=== PATIENT | male | born 1950 | race Caucasian/White ===

== ENCOUNTER 2022-05-19 00:40 | Day surgery (SDC) | payer MEDICARE, SELFPAY ==
[2022-05-04 14:45] VITALS: BMI 29.0
[2022-05-19 06:29] VITALS: BP 130/87; PULSE 92; RESP 20; TEMP 36.2; O2SAT 97; BMI 29.5
[2022-05-19] MEDS: LACTATED RINGERS 1,000 ML 150 ML IV CONT (06:35)
--- NOTE | 2022-05-19 07:04 | WPDANESEPPF ---
Anes - Initial Pre Proc Eval Procedure: Operation Date: 05/19/22 07:30 Proposed Procedures p Screening Colonoscopy - Zana Mason MD Date/Time: 05/19/22 07:04 Surgeon: Zana Mason MD Pre Op Diagnosis: neoplasm screening Patient Data Age: 72 Gender: M Height: 1.8 m Weight: 96.1 kg Last Vital Signs Temp 36.2 C L 05/19/22 06:29 Pulse 92 05/19/22 06:29 Resp 20 05/19/22 06:29 BP 130/87 05/19/22 06:29 Pulse Ox 97 05/19/22 06:29 O2 Del Method Room Air 05/19/22 06:29 Allergies Allergy/AdvReac Type Severity Reaction Status Date / Time No Known Allergies Allergy Verified 05/19/22 06:27 Home Medications Medication Instructions Recorded Confirmed Type alpha lipoic acid 100 mg capsule 100 mg PO DAILY 01/11/22 04/02/22 History cholecalciferol (vitamin D3) 125 125 mcg PO DAILY 01/11/22 04/02/22 History mcg (5,000 unit) capsule coenzyme [id number] E 100 mg-100 cap PO 01/11/22 04/02/22 History unit capsule garlic 500 mg capsule 500 mg PO DAILY 01/11/22 04/02/22 History iron 18 mg tablet 18 mg PO DAILY 01/11/22 04/02/22 History magnesium 200 mg tablet 400 mg PO DAILY 01/11/22 04/02/22 History mecobalamin (vitamin B12) 1,000 1,000 mcg sublingual DAILY 01/11/22 04/02/22 History mcg disintegrating tablet,sublingual omega-3 fatty acids 500 mg capsule 500 mg PO DAILY 01/11/22 04/02/22 History pygeum africanum 50 mg capsule mg PO 01/11/22 04/02/22 History tumeric 100 mg-alexei 150 mg-olive cap PO 01/11/22 04/02/22 History 50 mg-oreg 150 mg-caprylate capsule vit Q-I-R-selenium-glutamine with packet PO 01/11/22 04/02/22 History acetylcysteine oral packet Patient hx anesthesia problems: none Family hx anesthesia problems: none Results Review: All pre-operative results and documents have been reviewed as part of the pre-operative evaluation. [facility] Past Medical History Medical History (Updated 04/01/22 @ 09:55 by Jose De Jesus Stallings MD) Bilateral leg numbness BMI 29.0-29.9,adult BMI greater than 30 BPH associated with nocturia Left arm numbness Low testosterone level in male Primary osteoarthritis of right hip Family History Family History Grandparent Diabetes mellitus Social History Social History Smoking status: Never smoker Alcohol intake: current Drinks per week: 3 Substance use: unknown Substance use type: does not use Lack of Transportation: No Lack of Food: Never True Current Housing: I Have Housing Concerned About Future Housing: No Difficulty Paying Gas/Electric Bills: No Difficulty Paying for Meds: No Currently Unemployed: No Education: Associate Degree Difficulty w/ Childcare or Family Care: No Living arrangements: with family Anes - Eval Final PreProcedure Day of Procedure 05/19/22 07:04 Patient weight: overweight Heart: regular rate and rhythm Lungs: clear to auscultation Airway: Mallampati scale class II Neurological: alert and oriented Last oral intake: >/= 8 hours ASA classification: II Emergent: no Anesthetic plan: proceed Anesthesia type and monitoring: general GIVS and standard monitoring Results Review: All pre-operative results and documents have been reviewed as part of the pre-operative evaluation. Informed Consent: The patient's anesthetic plan and its attendant risks and benefits were discussed with the patient/family/POA. Questions were solicited and answers provided to the satisfaction of the patient/family/POA.
--- NOTE | 2022-05-19 07:31 | PM.HPGS ---
History of Present Illness History of Present Illness Consent: Risks, benefits, and alternatives have been discussed and questions answered. Patient agrees to proceed with procedure. Chief complaint: neoplasm screening Narrative: Tyrell Thompson is a 72 year old male with colon polyps 2017 Review of Systems Constitutional: Constitutional: Denies headache(s) and Denies weakness Eyes: Eyes: Denies blurry vision ENT: Reports Normal hearing present, Denies headache(s) and Denies neck pain Cardiovascular: Cardiovascular: Denies chest pain and Denies dyspnea Respiratory: Respiratory: Denies dyspnea Gastrointestinal: Gastrointestinal: Reports no additional gastrointestinal complaints Genitourinary: Genitourinary: Denies dysuria Musculoskeletal: Musculoskeletal: Denies neck pain Integumentary/Breasts: Skin/Breast: Denies dry skin Neurologic: Reports Normal hearing present, Denies headache(s) and Denies weakness Psychiatric: Psychiatric: Denies anxiety Endocrine: Endocrine: Denies change in body appearance Hematologic/Lymphatic: Hematologic/Lymphatic: Denies easy bleeding Allergic/Immunologic: Allergic/Immunologic: Denies urticaria PMF Past Medical History Medical History (Updated 05/19/22 @ 07:32 by Zana Mason MD) Bilateral leg numbness BMI 29.0-29.9,adult BMI greater than 30 BPH associated with nocturia Colon polyp Left arm numbness Low testosterone level in male Primary osteoarthritis of right hip Family History Family History Grandparent Diabetes mellitus Social History Social History Smoking status: Never smoker Alcohol intake: current Drinks per week: 3 Substance use: unknown Substance use type: does not use Lack of Transportation: No Lack of Food: Never True Current Housing: I Have Housing Concerned About Future Housing: No Difficulty Paying Gas/Electric Bills: No Difficulty Paying for Meds: No Currently Unemployed: No Education: Associate Degree Difficulty w/ Childcare or Family Care: No Living arrangements: with family Meds Home Medications and Allergies Home Medications Medication Instructions Recorded Confirmed Type alpha lipoic acid 100 mg capsule 100 mg PO DAILY 01/11/22 04/02/22 History cholecalciferol (vitamin D3) 125 125 mcg PO DAILY 01/11/22 04/02/22 History mcg (5,000 unit) capsule coenzyme [id number] E 100 mg-100 cap PO 01/11/22 04/02/22 History unit capsule garlic 500 mg capsule 500 mg PO DAILY 01/11/22 04/02/22 History iron 18 mg tablet 18 mg PO DAILY 01/11/22 04/02/22 History magnesium 200 mg tablet 400 mg PO DAILY 01/11/22 04/02/22 History mecobalamin (vitamin B12) 1,000 1,000 mcg sublingual DAILY 01/11/22 04/02/22 History mcg disintegrating tablet,sublingual omega-3 fatty acids 500 mg capsule 500 mg PO DAILY 01/11/22 04/02/22 History pygeum africanum 50 mg capsule mg PO 01/11/22 04/02/22 History tumeric 100 mg-alexei 150 mg-olive cap PO 01/11/22 04/02/22 History 50 mg-oreg 150 mg-caprylate capsule vit Q-V-O-selenium-glutamine with packet PO 01/11/22 04/02/22 History acetylcysteine oral packet Allergies Allergy/AdvReac Type Severity Reaction Status Date / Time No Known Allergies Allergy Verified 05/19/22 06:27 Vital Signs Vital Signs - 24 hr 05/19/22 06:29 Temperature 97.2 F L Pulse Rate 92 Respiratory Rate 20 Blood Pressure 130/87 Pulse Oximetry 97 Oxygen Delivery Room Air Exam Const: General: comfortable and no acute distress HENMT: Face/Nose/Sinus: Normal nares present Eyes: General: appearance normal, both eyes and all related structures Neck: Neck: no JVD Resp: Auscultation: clear to auscultation bilaterally Cardio: Rate: regular rate Rhythm: regular rhythm GI: Inspection: non-distended GI Palp: Yes Soft to palpation Skin: General skin ex
[2022-05-19 07:53] VITALS: BP 111/70; PULSE 58; RESP 15; O2SAT 98
[2022-05-19 08:03] VITALS: BP 126/78; PULSE 62; RESP 20; O2SAT 98
[2022-05-19 08:13] VITALS: BP 128/72; PULSE 56; RESP 15; O2SAT 99
== END 2022-05-19 08:20 | disposition home or self-care (01) ==
PROVIDERS: PCP Family Medicine; Visit Provider Internal Medicine Gastroenterology
PROC: 0DJD8ZZ Inspection of Lower Intestinal Tract, Via Natural or Artificial Opening Endoscopic (ICD-10-PCS; CPT 45378; principal; 2022-05-19 07:30)
DX: Z12.11 Encounter for screening for malignant neoplasm of colon (principal); K63.5 Polyp of colon; K64.8 Other hemorrhoids
CPT/HCPCS: 45385; 88305; J2704; J7120

== ENCOUNTER 2022-12-21 08:23 | Outpatient (CLI) | payer MEDICARE, SELFPAY ==
--- NOTE | ~2022-12-21 | MR_ITS ---
MRI of the left shoulder Technique: Axial proton-density fat-sat images, coronal proton density fat-sat and T2 fat-sat images, and sagittal T1-weighted and T2 fat-sat images were acquired. Clinical History: Impingement Findings: There is moderate to advanced AC joint degenerative change. Coracoclavicular, coracoacromia l, and coracohumeral ligaments appear intact. There is moderate supraspinatus and infraspinatus tendinosis. There is probable focal moderate grade fraying of the very anterior, distal supraspinatus tendon insertion. No definite full-thickness tear is seen. Subscapularis tendon is intact with mild tendinosis. Tendon of long head of the biceps is in tact. No definite labral tear identified. Inferior glenohumeral ligament is intact. No degenerative change or effusion of the glenohumeral join t. There is minimal fluid in the subacromial/subdeltoid bursa. No muscle atrophy or edema. Impression: Rotator cuff tendinosis, as detailed above. Probable focal moderate grade bursal surface fraying of t he anterior, distal supraspinatus tendon insertion. No definite full-thickness tear seen. Moderate to advanced AC joint degenerative change. Minimal subacromial/subdeltoid bursitis. Reviewed, dictated and finalized at location [facility]. Impression: Rotator cuff tendinosis, as detailed above. Probable focal moderate grade bursa l surface fraying of the anterior, distal supraspinatus tendon insertion. No de finite full-thickness tear seen. Moderate to advanced AC joint degenerative change. Minimal subacromial/subdeltoid bursitis.
--- NOTE | ~2022-12-21 | MR_ITS ---
MRI of the cervical spine Clinical History: Radiculopathy Technique: Axial T2-weighted and gradient images, and sagittal T1-weighted, T2-weighted, and STIR israel ges were acquired. Findings: There is no fracture or subluxation of the cervical spine. Vertebral bodies maintain normal height and alignment. No suspicious bone marrow signal abnormality seen. At C2-C3, there is no disc bulge or herniation. No spinal canal stenosis, cord compression, or neural foraminal narrowing. At C3-C4, there is mild degenerative distended with minimal disc osteophyte complex and minimal bilat eral facet arthropathy. There is probable mild left neural foraminal narrowing. Right neural foramina are preserved. No central canal stenosis or cord compression. At C4-C5, there is mild degenerative disc narrowing with minimal disc osteophyte complex. Bilateral n eural foramina are preserved. No central canal stenosis or cord compression evident. At C5-C6, there is advanced generative disc narrowing with minimal disc osteophyte complex. There is mild bilateral facet joint hypertrophy. Bilateral neural foramina are probably preserved. No central canal stenosis or cord compression. At C6-C7, there is minimal disc ossify complex. There is probable bilateral mild neural foraminal annie rowing. No central canal stenosis or cord compression. No abnormal signal seen in the spinal cord. Paravertebral soft tissues are unremarkable. Impression: Mild degenerative spondylosis, as above. Reviewed, dictated and finalized at [facility]. Impression: Mild degenerative spondylosis, as above.
== END 2022-12-21 08:24 | disposition home or self-care (01) ==
LOC: ANHIMG 08:25
PROVIDERS: PCP Family Medicine; Visit Provider Physician Assistant Surgical
DX: M75.42 Impingement syndrome of left shoulder (principal); M47.22 Other spondylosis with radiculopathy, cervical region
CPT/HCPCS: 72141; 73221

== ENCOUNTER 2023-01-14 05:28 | Day surgery (SDC) | payer MEDICARE, SELFPAY ==
--- NOTE | 2023-01-07 15:37 | PC.NURSE ---
Report to the Outpatient Waiting Room, entrance under the green pavilion located off [facility], at time _1030 on date _01/14/23 . Planned Procedure Time: __1230 . Time changes happen often and if your time is changed the preop area will call you the afternoon before. - You and your visitor will be asked to self-screen and do not enter if you have any COVID symptoms. - A mask is optional within the hospital at this time. Patients may have clear liquids (water, carbonated beverages, clear teas, apple juice) until 3 hours prior to surgery with a maximum of 20 ounces. - No food from midnight until time of surgery - Infants may have breast milk until 4 hours before surgery, infant formula 6 hours prior to surgery. - Children will be allowed to drink immediately following surgery. If applicable, please bring a bottle or sippy cup to assist with drinking. Juice, water, soda, and popsicles are readily available. For infants on formula, please bring formula the day of surgery. Pacifiers are allowed. Take the following medications with a SIP of water the morning of surgery: __NONE DO NOT STOP ANY OF YOUR OTHER PRESCRIPTION MEDICATIONS PRIOR TO SURGERY ?EXCEPT THE FOLLOWING Medications to discontinue per physician _ALL VITAMINS AND SUPPLEMENTS 3 DAYS PRE OP.LAST DOSE 01/10/23 Please no make-up, nail maltese, hairspray, perfume, deodorant, or body powder the day of surgery. No jewelry (including any body piercings) or valuables the day of surgery, leave them at home. Please take a shower or bath the night before, or the morning of, surgery with an antibacterial soap. Wear comfortable, loose fitting clothing. Children are encouraged to wear pajamas. - Jewelry must be removed prior to entering the operating room. Rings and piercings that are not removed may be cut off. - The hospital will not accept responsibility for valuables. - Please leave all valuables, including medications, at home the day of surgery. If you are going home after surgery, a licensed dolly driver must drive you home. - NO public transportation without another adult if you receive anesthesia. - We recommend that an adult stay with you for 24 hours following discharge. - We also recommend that you do not drive, make important decision, drink alcoholic beverages, or take any drugs that were not prescribed by your health care provider for at least 24 hours after your discharge time. Follow any additional instructions given to you from your surgeon. If you or anyone in your household have experienced Covid symptoms in the past week, please notify your surgeon or the nurse liaison at the phone number below for possible testing. Telephone instructions given to ___PATIENT and asked if any additional questions and then verbalized understanding. Patient advised to call surgeon office or pre surgery nurse liaison [phone] if any additional questions.
[2023-01-07 15:43] VITALS: BMI 29.2
[2023-01-14] VITALS (10 sets, daily range): BP systolic 112–160; BP diastolic 52–90; PULSE 52–83; RESP 11–18; TEMP 36.2–36.4; O2SAT 93–100
[2023-01-14] MEDS: ACETAMINOPHEN 500 MG TABLET 1000 MG PO (10:48)
[2023-01-14] MEDS: LACTATED RINGERS 1,000 ML 30 ML IV CONT ×3 (10:57→14:58)
[2023-01-14] MEDS: KETOROLAC 15 MG/ML VIAL (*BKC) IV PUSH (10:58)
[2023-01-14 11:09] LABS: Hematocrit 47.7 % (42.0-52.0); Hemoglobin 15.4 g/dL (14.0-18.0)
--- NOTE | 2023-01-14 12:00 | WPDANESEPPF ---
Anes - Initial Pre Proc Eval Procedure: Operation Date: 01/14/23 12:30 Proposed Procedures p Left Shoulder Arthroscopic Subacromial Decompression, Proceed as indicated - Jose Smith MD Date/Time: 01/14/23 12:00 Surgeon: Jose Smith MD Pre Op Diagnosis: Impingement Synd Left Shoulder Patient Data Age: 72 Gender: M Height: 1.8 m Weight: 96 kg Last Vital Signs Temp 36.2 C L 01/14/23 10:19 Pulse 52 L 01/14/23 10:19 Resp 18 01/14/23 10:19 BP 160/90 H 01/14/23 10:19 Pulse Ox 100 01/14/23 10:19 O2 Del Method Room Air 01/14/23 10:19 Allergies Allergy/AdvReac Type Severity Reaction Status Date / Time No Known Allergies Allergy Verified 01/14/23 10:34 Home Medications Medication Instructions Recorded Confirmed Type alpha lipoic acid 100 mg capsule 100 mg PO DAILY 01/11/22 01/07/23 History cholecalciferol (vitamin D3) 125 125 mcg PO DAILY 01/11/22 01/07/23 History mcg (5,000 unit) capsule coenzyme [id number] E 100 mg-100 100 cap PO DAILY 01/11/22 01/07/23 History unit capsule garlic 500 mg capsule 500 mg PO DAILY 01/11/22 01/07/23 History iron 18 mg tablet 18 mg PO DAILY 01/11/22 01/07/23 History magnesium 200 mg tablet 400 mg PO DAILY 01/11/22 01/07/23 History mecobalamin (vitamin B12) 1,000 1,000 mcg sublingual DAILY 01/11/22 01/07/23 History mcg disintegrating tablet,sublingual omega-3 fatty acids 500 mg capsule 500 mg PO DAILY 01/11/22 01/07/23 History tumeric 100 mg-alexei 150 mg-olive 1 cap PO DAILY 01/11/22 01/07/23 History 50 mg-oreg 150 mg-caprylate capsule Laboratory Tests 01/14/23 10:48 Hgb 15.4 g/dL (14.0-18.0) Hct 47.7 % (42.0-52.0) Patient hx anesthesia problems: none Family hx anesthesia problems: none Results Review: All pre-operative results and documents have been reviewed as part of the pre-operative evaluation. [facility] Past Medical History Medical History Arterial leg ulcer Bilateral leg numbness BMI 29.0-29.9,adult BMI greater than 30 BPH associated with nocturia Colon polyp Left arm numbness Low testosterone level in male Primary osteoarthritis of right hip Vascular disorder of lower extremity Family History Family History Grandparent Diabetes mellitus Social History Social History Smoking status: Never smoker Alcohol intake: current Drinks per week: 15 Alcohol use details: BEER Substance use: unknown Substance use type: does not use Lack of Transportation: No Lack of Food: Never True Current Housing: I Have Housing Concerned About Future Housing: No Difficulty Paying Gas/Electric Bills: No Difficulty Paying for Meds: No Currently Unemployed: No Education: Associate Degree Difficulty w/ Childcare or Family Care: No Living arrangements: with family Spiritual care concerns: No Anes - Eval Final PreProcedure Day of Procedure 01/14/23 12:00 Patient weight: overweight Heart: regular rate and rhythm Lungs: clear to auscultation Airway: Mallampati scale class II Neurological: alert and oriented Last oral intake: >/= 8 hours ASA classification: III Emergent: no Anesthetic plan: proceed Anesthesia type and monitoring: general ETT and standard monitoring Results Review: All pre-operative results and documents have been reviewed as part of the pre-operative evaluation. Informed Consent: The patient's anesthetic plan and its attendant risks and benefits were discussed with the patient/family/POA. Questions were solicited and answers provided to the satisfaction of the patient/family/POA.
--- NOTE | 2023-01-14 12:04 | WPDHPUPDATE1 ---
History and Physical Update Update Date/Time: 01/14/23 12:04 History and Physical has been reviewed, including an updated exam of the patient. There are NO changes in the patient's condition. Risks, benefits, and alternatives have been discussed and questions answered. Patient agrees to proceed with procedure.
[2023-01-14] MEDS: ceFAZolin 2 GM/D5W 50 ML 2 GM/50 ML BAG IVPB (12:35)
--- NOTE | 2023-01-14 12:37 | WPDANESPNB ---
Anes - Peripheral Nerve Block Date/Time: 01/14/23 12:37 I have discussed with the patient/family/POA the placement of a peripheral nerve block for post-operative pain management, including associated risks, benefits, complications, and side effects. Alternative methods of post-operative analgesia were detailed. Questions were solicited and answers provided to the satisfaction of the patient/family/POA. Time-Out: A pre-procedural Time-Out was completed immediately before starting the procedure and confirmed: Patient Identification, Site, Procedure, Patient Position and the Availability of Requisite Equipment. Clinical Indications: Acute post-operative pain management requested by the operative surgeon. Nerve Block Insertion Note Anes-nerve block: interscalene left Patient position: supine Skin prep: chlorhexidine Needle: 22 gauge, stimulating, insulated echogenic needle. Needle length: 50 mm Technique: nerve stimulation lost at (mA) (0.21) and ultrasound Technique comment: mid2mg [id number] Injectate: bupivacaine 0.5% with epi 5 mcg/ml (30ml no epi) and dexamethasone (mg) (4) Procedure start time:: 1228 Procedure end time:: 1234
[2023-01-14] MEDS: EPINEPHrine HCL INJ 1 MG/ML AMPUL IRRIGATION (13:53)
--- NOTE | 2023-01-14 15:19 | P.OP_ITS ---
Procedure Note - Detailed Date of Procedure 01/14/23 Pre-op Diagnosis Impingement Synd Left Shoulder Post-op Diagnosis Other (1. Rotator cuff tear 2. Subacromial impingement ) Procedure Performed Left shoulder 1. Arthroscopic rotator cuff repair 2. Arthroscopic subacromial decompression Surgeon Jose Smith MD [employer] Machine Operator Charito Streeter PA-C Anesthesia General and Regional ( interscalene block) Findings Full-thickness supraspinatus medium size tear. No significant retraction. Some tendon tissue remaining on the footprint. Mild degenerative fraying of the superior labrum without biceps anchor instability. The biceps tendon itself appeared normal. Moderate anterior and posterior glenoid labral fraying treated with gentle acromioplasty. Mild early degenerative changes at the anterior inferior glenoid with mild cartilage wear. Rotator cuff repaired with 2 bone tunnels and 6 sutures in a rip stop fashion. Excellent anatomic reconstruction. Moderate subacromial decompression with acromioplasty. Description of Procedure Preoperative antibiotics were given. An interscalene block was administered in the preoperative area. The patient was bought brought to the operating room. A general anesthetic was administered. The patient was carefully positioned in the beach chair position. The head and neck were carefully positioned. The non operative extremity was also carefully positioned. The shoulder was prepped and draped in the usual sterile fashion. Examination was performed. Standard posterior and anterior arthroscopic portals were established. Inflow achieved with the arthroscopic pump using saline and epinephrine. The glenohumeral joint was carefully inspected. The articular cartilage showed mild degenerative wear at the anterior inferior glenoid. The labrum had mild fraying anterior and posterior as well as superior. These areas were treated with simple debridement. The subscapularis was intact. Initially the rotator cuff appeared to have mid grade articular sided tearing at the supraspinatus. The area was marked for later confirmation at the bursal side. Attention was turned to the subacromial space. A complete bursectomy was performed. It was clear that the tear was more substantial. It was complete and with minimal debridement of degenerative tissue a medium size tear was confirmed. The rotator cuff and footprint were lightly debrided. A modest acromioplasty was performed. The tear configuration was carefully assessed. At this point, 2 tunnels were created at the rotator cuff. The ArthroTunneler technique was utilized. Three sutures were passed through each tunnel. All sutures were then passed through the cuff tissue. The sutures were tied arthroscopically. The arthroscopic instruments were removed. The wounds were closed with 4-0 Monocryl subcuticular suture and steri strips. There were no complications. A sling was applied and the patient brought to the recovery room. Physician patient care nursing assistant, Charito Streeter PA-C, required for surgery; including patient positioning, draping, arthroscopic camera operation, maintaining instrument position, suture retrieval, wound closure, and dressing and sling placement. Estimated Blood Loss -10.0 Pathology None sent Complications No immediate complications Condition Stable Disposition PACU [facility] Billing Surgery - Charge Forward: Surgery Billing
== END 2023-01-14 17:50 | disposition home or self-care (01) ==
PROVIDERS: Anesthesiology; PCP Family Medicine; Visit Provider Orthopaedic Surgery
PROC: (CPT 29805; principal; 2023-01-14 12:30)
DX: M75.42 Impingement syndrome of left shoulder (principal); M75.102 Unspecified rotator cuff tear or rupture of left shoulder, not specified as traumatic; G89.18 Other acute postprocedural pain; N40.1 Benign prostatic hyperplasia with lower urinary tract symptoms; R35.1 Nocturia
CPT/HCPCS: 29827; 29826; 64415; 36415; 85014; 85018; A4565; A9270; J0171; J0690; J1100; J1885; J2250; J2405; J2704; J3010; J7120

== ENCOUNTER → 2023-12-27 11:30 | Outpatient (REF) | payer MEDICARE, SELFPAY | LOC: ANHLAB 11:30 | PROVIDERS: PCP Family Medicine; Visit Provider Plastic Surgery | DX: C43.4 Malignant melanoma of scalp and neck (principal) | CPT/HCPCS: 88305 ==

== ENCOUNTER → 2024-01-24 11:44 | Outpatient (REF) | payer MEDICARE, SELFPAY | LOC: ANHLAB 11:44 | PROVIDERS: PCP Family Medicine; Visit Provider Plastic Surgery | DX: D03.59 Melanoma in situ of other part of trunk (principal) | CPT/HCPCS: 88305 ==

== ENCOUNTER 2024-06-11 08:01 | Emergency (ER) | payer MEDICARE, SELFPAY ==
--- NOTE | 2024-06-11 08:04 | ED_ITS ---
HPI - Skin/Abscess/Foreign Bdy General Chief complaint: Skin/Abscess/Foreign Body Stated complaint: itchy spots all over Time Seen by Provider: 06/11/24 08:14 Source: patient, RN notes reviewed and old records reviewed Mode of arrival: ambulatory Limitations: no limitations History of Present Illness HPI narrative: 74-year-old male presents to the [facility] with itchy spots all over for the last 10 days. Has been apply eczema cream entrance alone. Denies any new creams ointments lotions detergents. Denies any new foods. Denies any new clothes. Onset (ago): day(s) (10) Treatments prior to arrival: OTC topical medication Related Data Home Medications ?Medication ?Instructions ?Recorded ?Confirmed ?Last Taken ?Type alpha lipoic acid 100 mg capsule 100 mg PO DAILY 01/11/22 05/20/23 05/17/22 History cholecalciferol (vitamin D3) 125 125 mcg PO DAILY 01/11/22 05/20/23 05/17/22 History mcg (5,000 unit) capsule coenzyme [id number] E 100 mg-100 100 cap PO DAILY 01/11/22 05/20/23 05/17/22 History unit capsule garlic 500 mg capsule 500 mg PO DAILY 01/11/22 05/20/23 05/17/22 History iron 18 mg tablet 18 mg PO DAILY 01/11/22 05/20/23 05/17/22 History magnesium 200 mg tablet 400 mg PO DAILY 01/11/22 05/20/23 05/17/22 History mecobalamin (vitamin B12) 1,000 1,000 mcg sublingual DAILY 01/11/22 05/20/23 05/17/22 History mcg disintegrating tablet,sublingual omega-3 fatty acids 500 mg capsule 500 mg PO DAILY 01/11/22 05/20/23 05/17/22 History turmeric 100 mg-alexei 150 1 cap PO DAILY 01/11/22 05/20/23 05/17/22 History mg-olive 50 mg-oreg 150 mg-capryl capsule Allergies Allergy/AdvReac Type Severity Reaction Status Date / Time No Known Allergies Allergy Verified 12/27/23 11:13 Review of Systems Review of Systems: All systems reviewed & are unremarkable except as noted in HPI and below Constitutional: Constitutional: Reports no additional constitutional complaints ENT: Reports system reviewed and no additional complaints, except as documented Cardiovascular: Cardiovascular: Reports no additional cardiovascular complaints, Denies chest pain and Denies dyspnea Respiratory: Respiratory: Reports no additional respiratory complaints, Denies chest congestion, Denies cough and Denies dyspnea Musculoskeletal: Musculoskeletal: Reports no additional musculoskeletal complaints Integumentary/Breasts: Skin/Breast: Reports as per HPI, Reports pruritus and Reports rash PMFSH Past Medical History Medical History Arterial leg ulcer Bilateral leg numbness BMI 29.0-29.9,adult BMI greater than 30 BPH associated with nocturia Colon polyp Left arm numbness Low testosterone level in male Primary osteoarthritis of right hip Vascular disorder of lower extremity Surgical History Surgical History History of repair of left rotator cuff (~01/14/23) Family History Family History Grandparent Diabetes mellitus Social History Social History Smoking status: Never smoker Alcohol intake: current Drinks per week: 15 Alcohol use details: BEER Substance use: unknown Substance use type: does not use Do You Feel Safe in your Home?: Yes Lack of Transportation: No Lack of Food: Never True Current Housing: I Have Housing Concerned About Future Housing: No Difficulty Paying Gas/Electric Bills: No Difficulty Paying for Meds: No Currently Unemployed: No Education: Associate Degree Difficulty w/ Childcare or Family Care: No Living arrangements: with family Spiritual care concerns: No Comments At the time of my signature, I reviewed and agree with the nursing past medical, surgical, social, and family history. There is no relevant family history pertinent to the patient complaint. Exam Const: General: cooperative, healthy appearing, comfortable, no acute distress, well developed, alert and well nourished Nutritional Appearance: well nourished Orientation/consciousness: patient oriented x3 Limitations: no limitations HENMT: Head: normal to inspection Mouth: Yes Normal oral and palatal mucosa present, Yes lip normal, Yes tongue normal and Yes moist mucous membranes Eyes: General: appearance normal, both eyes and all related structures Alignment and Position: alignment normal Neck: Neck: normal visual inspection, full ROM, no lymphadenopathy and no meningeal signs Chest: Chest palpation & inspection: normal inspection of the chest Resp: Effort & Inspection: normal respiratory effort and able to speak in complete sentences Auscultation: clear to auscultation bilaterally, no crackles, no rales, no rhonchi and no wheezes Cardio: Rate: regular rate Skin: General skin exam: normal color and no rashes or lesions noted Rashes: rashes noted (chest and arms, red areas, not raised) Neuro: General: patient oriented x3, gait normal, moves all extremities and no meningeal signs Cognition (Neuro): normal cognition Speech: normal speech Gait exam (Neuro): Normal gait present Extrem: General: normal to inspection, full ROM, capillary refill normal and normal gait Psych: Appearance: grossly normal and well kempt Mental Status: mental status grossly normal Speech and movement: Normal speech and movement present and Clear speech present Affect: normal affect Attitude: cooperative Course Course Level of Care: Express Care Visit Vital Signs Vital signs: Vital Signs Temperature 97.9 F 06/11/24 08:26 Pulse Rate 70 06/11/24 08:26 Respiratory Rate 20 06/11/24 08:26 Blood Pressure 149/80 H 06/11/24 08:26 Pulse Oximetry 96 06/11/24 08:26 Oxygen Delivery Room Air 06/11/24 08:26 Temperature 97.9 F 06/11/24 08:26 Pulse Rate 70 06/11/24 08:26 Respiratory Rate 20 06/11/24 08:26 Blood Pressure 149/80 H 06/11/24 08:26 Pulse Oximetry 96 06/11/24 08:26 Oxygen Delivery Room Air 06/11/24 08:26 Reviewed MDM - Skin/Abscess/Foreign Bdy MDM Narrative Medical decision making narrative: patient sitting comfortably in exam room. Nontoxic, vitals stable. Patient in no acute distress. Patient presents with 10 day it is of an itchy rash to the arms, chest and upper back. Patient is appropriate for outpatient treatment and follow-up Discharge instructions reviewed with patient, as well as provided in writing per nursing staff. The instructions also include specific and strict return/GO TO THE ER as well as f/u information. All questions have been answered, and the patient deny any further questions with discharge and discharge plan. Some parts of this dictation were generated by voice recognition software and may contain typographical and/or grammatical inaccuracies. Differential Diagnosis Differential diagnosis: Likely abscess of skin or subcutaneous tissue, viral exanthem, dermatophytosis, urticaria, allergic reaction to drug, cellulitis, eczema, insect bites, impetigo and contact dermatitis Critical Care Time Critical Care Time Critical Care Time: No Discharge Plan Discharge Clinical Impression: Dermatitis Patient Disposition: Home, Self-Care Condition: Stable Instructions: Antibiotic Form Additional Instructions: The most important part of your care is follow up with Primary care provider. today your blood pressure was 149/80. Take Zyrtec every day Take Pepcid 20mg daily for 7 days Take the steroids starting today and then daily in the morning Avoid hot showers, Take cool showers. Hot showers will make rashes worse Apply cool compresses every 2-3 hours for 15 minutes Go to the ER for new or worsening symptoms such as shortness of breath. Patient Language: Fijian Prescriptions: New prednisone 20 mg tablet See Rx Instructions .Route .COMPLEX Qty: 15 0RF Rx Instructions: Take 40 mg daily for 5 days, 20 mg daily for 5 days No Action omega-3 fatty acids 500 mg capsule 500 mg PO DAILY mecobalamin (vitamin B12) 1,000 mcg tablet,disintegrating 1,000 mcg sublingual DAILY Rx Instructions: place tablet under tongue and allow to dissolve for at least30 secs before swallowing iron 18 mg tablet 18 mg PO DAILY cholecalciferol (vitamin D3) 125 mcg (5,000 unit) capsule 125 mcg PO DAILY coenzyme [id number] E 100-100 mg-unit capsule 100 cap PO DAILY alpha lipoic acid 100 mg capsule 100 mg PO DAILY garlic 500 mg capsule 500 mg PO DAILY ovewamxf-rhti-htyxq-oreg-capry 100 mg-150 mg- 50 mg-150 mg capsule 1 cap PO DAILY magnesium 200 mg tablet 400 mg PO DAILY Follow-up/Referrals: Jose De Jesus Stallings MD [Primary Care Provider] - 1 Week (express care follow up, rash Blood pressure check, 149/80) Time of Disposition: 08:23
--- OUTSIDE RECORDS SUMMARY | 2024-06-11 08:07 | XMS_ITS | Clinical Summary ---
Author Organization [facility] Address [address], [address] [address] Phone Care Team Providers Care Scrap Yard Worker Name Role Phone Jose De Jesus Stallings MD Primary Care Provider [phone] Allergies No known active allergies Medications B Ofpjeah-L-Qfltf Acid (B-COMPLEX BALANCED PO) Take by mouth. Active [place] 3 1000 MG Capsule Take by mouth. Active Acetylcarnitine HCl (ACETYL L-CARNITINE) 500 MG Capsule Take by mouth. Active LevOCARNitine L-Tartrate (L-CARNITINE) 500 MG Capsule Take by mouth. Active Phosphatidylserin e 100 MG Capsule Take by mouth. Active [place], Serenoa repens, (SAW PALMETTO PO) Take by mouth. Active MAGNESIUM PO Take 200 mg by mouth. Active Coenzyme Q10 (CO Q-10) 100 MG Capsule Take by mouth. Active Cholecalciferol (VITAMIN D-3 PO) Take by mouth. Active Ferrous Sulfate (IRON) 325 (65 Fe) MG Tablet Take 1 Tab by mouth daily. Active GARLIC PO Take 1 Tab by mouth daily. Active Cobalamine Combinations (B-12 + FOLIC ACID PO) Take 1 Tab by mouth daily. Active Alpha-Lipoic Acid 100 MG Capsule Take by mouth. Active Zinc 50 MG Capsule Take by mouth. Active Multiple Vitamins-Minerals (MULTIVITAMIN PO) Take by mouth. Active Milk Thistle 1000 MG Capsule Take by mouth. Active TURMERIC PO Take by mouth. Active Family History Medical History Relation Name Comments Alzheimer's Disease Father Alzheimer's Disease Mother Relation Name Status Comments Father Mother Social History Tobacco Use Types Packs/Day Years Used Date Smoking Tobacco: Never Smokeless Tobacco: Never Alcohol Use Standard Drinks/Week Comments Yes 0 (1 standard drink = 0.6 oz pur e alcohol) 15-20 BEERS Sex and Gender Information Value Date Recorded Sex Assigned at Not on file Legal Sex Male 10:30 PM CDT Gender Identity Not on file Sexual Orientation Not on file Last Filed Vital Signs Vital Sign Reading Time Taken Comments Blood Pressure 126/77 08/14/2018 6:53 AM CDT Pulse 59 08/14/2018 5:39 AM CDT Temperature 36 C (96.8 F) 08/14/2018 6:53 AM CDT Respiratory Rate 16 08/14/2018 6:53 AM CDT Oxygen Saturation 98% 08/14/2018 6:53 AM CDT Inhaled Oxygen Concentration - - Weight 93 kg (205 lb) 08/01/2018 1:00 PM CDT Height 180.3 cm (5' 11 ) 08/01/2018 1:00 PM CDT Body Mass Index 28.59 08/01/2018 1:00 PM CDT Plan of Treatment Health Maintenance Due Date Last Done Comments Hepatitis C Virus (HCV) Screening 1950 TdaP Immunization 1950 Cologuard 2001 Immunochemical Fecal Occult Blood 2001 Pneumococcal Immunization (5 0+ years) (1 of 1 - PCV) 2001 Zoster Immunization (1 of 2) 2001 Colonoscopy 08/25/2017 08/25/2016 Colorectal Cancer Screening 08/25/2017 Influenza Immunization (#1) 2023 SARS-COV-2 Immunization ( season) 2023 Respiratory Syncytial Virus (RSV) Immunization (Adult) (1 - 1-dose 75+ series) 2026 08/25/2016 Hepatitis B Immunization Aged Out No longer eligible based on patient's age to complete this topic Meningococcal Immunization (ACWY) Aged Out No longer eligible based on patient's age to complete this topic Rotavirus Immunization Aged Out No lo nger eligible based on patient's age to complete this topic Insurance MEDICARE COMMERCIAL GENERIC Care Teams Scrap Yard Worker Relationship Specialty Start Date End Date Jose De Jesus Stallings MD [address] [place] [address] PCP - General Family Medicine 04/07/16
--- OUTSIDE RECORDS SUMMARY | 2024-06-11 08:07 | XMS_ITS | Clinical Summary ---
Author Organization [facility] Address [address] [place] [address] Care Team Providers Care Table Filler Name Role Phone Jose De Jesus Stallings MD Primary Care Provider [phone] Heriberto Bob MD Unavailable Allergies No known active allergies Medications caffeine 200 mg tabletIndicati ons:supplement Take 1 tablet (200 mg total) by mouth every morning Active omega-3 fatty acids-fish oil 300-1,000 mg capsuleIndicat ions:supplemen t Take 2 capsules (2 g total) by mouth every morning Active UNABLE TO FINDIndication s:supplement Take 1 each by mouth every morning Med Name: L Carnitine Active UNABLE TO FINDIndication s:supplement Take 1 each by mouth every morning Med Name: L Carnisine Active UNABLE TO FINDIndication s:supplement Take 1 each by mouth every morning Med Name: Phosphatidylserine Active SAW PALMETTO ORALIndication s:supplement Take 1 each by mouth every morning Active magnesium gluconate 200 mg tabletIndicati ons:hypomagnes emia Take 1 tablet (200 mg total) by mouth every morning Active coenzyme Q10 100 mg capsuleIndicat ions:supplemen t Take 1 capsule (100 mg total) by mouth every morning Active cholecalcifero l (VITAMIN D-3) 25 mcg (1,000 unit) tabletIndicati ons:Vitamin D Deficiency Take 1 tablet (1,000 Units total) by mouth every morning Active ferrous sulfate 325 mg (65 mg of elemental iron) tabletIndicati ons:Iron Deficiency Anemia Take 1 tablet (325 mg total) by mouth daily with breakfast Active garlic tabletIndicati ons:supplement Take 1 each by mouth every morning Active UNABLE TO FINDIndication s:supplement Take 1 each by mouth every morning Med Name: Nitric Oxide Active UNABLE TO FINDIndication s:supplement Take 1 each by mouth every morning Med Name: Dim Complex Active UNABLE TO FINDIndication s:supplement Take 1 each by mouth every morning Med Name: Alpha Liporic Acid Active milk thistle 175 mg tabletIndicati ons:supplement Take 1 tablet (175 mg total) by mouth every morning Active turmeric root extract 500 mg capsuleIndicat ions:supplemen t Take 500 mg by mouth every morning Active aspirin (Ecotrin) 325 mg enteric coated tablet Take 1 tablet (325 mg total) by mouth daily 42 tablet 01/29/20 22 Active vitamin B complex capsuleIndicat ions:Vitamin Deficiency Prevention Take 1 capsule by mouth every morning Activ e triamcinolone (KENALOG) 0.1 % ointmentIndica tions:skin rash Apply topically 2 (two) times a day 30 g 3 06/29/19 24 Active HYDROcodone-ac etaminophen (NORCO) 5-325 mg per tabletIndicati ons:Pain Take 1 tablet by mouth every 6 (six) hours as needed for pain 5 tablet 07/04/19 24 Active Active Problems Problem Noted Date Diagnosed Date Varicose veins of left lower extremity with ulcer and inflammation 05/20/2023 Varicose veins of left lower extremity with pain 05/20/2023 Chronic venous insufficiency 05/18/2023 Varicose veins of right lower extremity with com plications 05/18/2023 Chronic deep vein thrombosis (DVT) of femoral vein of left lower extremity 08/19/2022 Assessment & Plan (08/19/2022 12:00 PM CDT): Subacute left femoral deep vein thrombosis. Called patient today and written a prescription for Xarelto, we will treat for 1 month with a repeat duplex. Varicose veins of both legs with edema 3 Assessment & Plan (10/06/2022 9:41 AM CDT): Impression: Scattered varicose veins of both lower extremities with evidence of skin changes and a small superficial ulcer of his right posterior calf. Patient is not utilize any type of compression therapy currently. He denies any pain associated with his varicose veins. Plan: Recommend daily compression therapy consisting of medical grade knee-high compression stockings 20-30 millimeter mercury in strength with leg elevation p.r.n.. I discussed with the patient that if his varicose veins worsen or become painful to follow-up with our office for discussion of surgical treatment options. Assessment & Plan (08/19/2022 11:59 AM CDT): Bilateral lower extremity CEAP C5 disease, healed ulcer to the right lower extremity. Bilateral saphenous veins have been ablated. Symptomatic bulky varicosities the left lower extremity despite compression therapy, risks benefits alternatives to stab phlebectomies discussed, risks including bleeding, infection, need further surgery. He wished to proceed. We will bring him back after 1 month of anticoagulation with repeat duplex given his subacute thrombus in the femoral vein. Assessment & Plan (07/29/2022 10:01 AM CDT): Seen for evaluation of chronic varicose veins to both lower extremities. Varicosities are worse to the left lower extremity versus the right. However he has worsening symptoms and skin discoloration and active ulcer to his right medial ankle. History of previous EVLT ease years ago. Started to develop chronic swelling to his right lower extremity after his hip replacement in 2021. Does complain of worsening swelling and achiness and heaviness to his legs after standing for long periods of time. Both lower extremities are warm palpable pulses to the left DP monophasic signals to the right. Is inconsistent with compression therapy. Seen with Dr. Russo. Plan: Follow-up with a lower extremity venous reflux as well as an arterial Doppler. Continue current wound care to the right medial ankle ulceration. Aftercare following right hip joint replacement surgery 02/08/2022 Osteoarthritis 01/27/2022 Resolved Problems Problem Noted Date Diagnosed Date Resolved Date Primary osteoarthritis of right hip 12/18/2021 02/08/2022 Overview (12/18/2021): Added automatically from request for surgery [id number] Immunizations Immunization Administration Dates Next Due Pneumococcal Conjugate PCV 13 02/17/2021 Surgical History Surgery Date Site/Laterality Comments FLUORO GUIDED INJECTION HIP RIGHT 04/01/2021 Right TOTAL HIP ARTHROPLASTY 01/12/2022 - 02/10/2022 Right ROTATOR CUFF REPAIR 03/14/2022 - 03/13/2023 Left VEIN SURGERY 05/24/2023 Right ligation and stripping COLONOSCOPY last one 08/2016 ESOPHAGOGASTRODUODENOSCOPY last one 08/2018 Medical History Medical History Date Comments GERD (gastroesophageal reflux disease) Pulmonary embolism (HCC) DVT (deep venous thrombosis) (HCC) HL (hearing loss) Varicose veins of both lower extremities Osteoarthritis Jaundice Family History Medical History Relation Name Comments Other Brother 3 Alive and well; Other Brother 4 Alive and well; Other Father Alive and well; Other Mother Alive and well; Anesthesia problems Neg Hx Relation Name Status Comments Brother 1 Alive Brother 2 Alive Brother 3 Brother 4 Father Alive Mother Alive Social History Tobacco Use Types Packs/Day Years Used Date Smoking Tobacco: Never Passive Smoke Exposure: Never Smokeless Tobacco: Never Tobacco Cessation:Counseling Given: Not Answered Alcohol Use Standard Drinks/Week Comments Yes 0 (1 standard drink = 0.6 oz pur e alcohol) AUDIT-C Answer Date Recorded Q1: How often do you have a drink containing alcohol? 4 or more times a week 07/04/2023 Q2: How many drinks containi ng alcohol do you have on a typical day when you are drinking? 3 or 4 Q3: How often do you have si x or more drinks on one occasion? Less than monthly 07/04/2023 Personal Safety Answer Date Recorded Have you ever been in or are you currently in a harmful physical or emotional relationship or is someone making you feel afraid or unsafe? 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 [employer] Gender Identity Not on file Sexual Orientation Not on file Obstetrics History Last Filed Vital Signs Vital Sign Reading Time Taken Comments Blood Pressure 150/95 07/04/2023 12:50 PM CDT Pulse 64 07/04/2023 12:50 PM CDT Temperature 36 C (96.8 F) 07/04/2023 10:40 AM CDT Respiratory Rate 13 07/04/2023 12:50 PM CDT Oxygen Saturation 97% 07/04/2023 12:50 PM CDT Inhaled Oxygen Concentration - - Weight 96.2 kg (212 lb) 06/28/2023 3:40 PM CDT Height 180.3 cm (5' 11 ) 06/28/2023 3:40 PM CDT Body Mass Index 29.57 06/28/2023 3:40 PM CDT Plan of Treatment Health Maintenance Due Date Last Done Comments Colon Cancer Screening-Colonoscopy 1950 Depression Screening 1950 Hepatitis C Screening 1950 DTaP/Tdap/Td Vaccine (1 - Tdap) 1962 Hepatitis B Screening 1969 Zoster Vaccine (1 of 2) 2001 Well Visit 65+ 02/29/2016 Pneumococcal vaccine 65+ (2 of 2 - PPSV23) 02/17/2022 02/17/2021 Influenza Vaccine (#1) 2023 Fall Risk Assessment 07/03/2024 07/04/2023 Medical Devices Implanted Type Area Rust Proofer Device Identifier Shelf Expiration Date Model / Serial / Lot [employer] [place] 60mm Sector Hip Shell Acetabular Gription Sterile Latex Free [id number] - [id number] Implanted:Qty: 1 on 01/27/2022 by Heriberto Bob MD at [facility] Right: Hip [employer] [id number] 12/11/2026 [id number] / / [id number] [employer] [place] 60mm 36mm Hip Neutral Liner Acetabular Altrx Sterile Latex Free [id number] - [id number] Implanted:Qty: 1 on 01/27/2022 by Heriberto Bob MD at [facility] Right: Hip [employer] [id number] 12/11/2026 [id number] / / [id number] [employer] [place] 6.5mm 35mm Acetabular Cancellous Screw Bone Sterile 1217-35-500 - [id number] Implanted:Qty: 1 on 01/27/2022 by Heriberto Bob MD at [facility] Right: Hip [employer] [id number] 09/11/2031 1217-35-500 / / [id number] [employer] Actis Collar Hip 8 Standard Offset Stem Femoral [id number] - [id number] Implanted:Qty: 1 on 01/27/2022 by Heriberto Bob MD at [facility] Right: Hip [employer] [id number] 05/12/2031 [id number] / / [id number] [employer] Articul/Harsh 36mm Cementless Hip +8.5mm 02/24 Taper Head Femoral Latex Free 1365-36-330 - [id number] Implanted:Qty: 1 on 01/27/2022 by Heriberto Bob MD at [facility] Right: Hip [employer] [id number] 11/11/2026 1365-36-330 / / [id number] Insurance MEDICARE [facility] MEDICARE COMMERCIAL GENERIC COMMERCIAL GENERIC Advance Directives For more information, please contact: [phone] * Full Code (Latest Code Status on File) Date Activated Date Inactivated Comments 01/27/2022 1:09 PM 01/28/2022 7:32 PM Care Teams Table Filler Relationship Specialty Start Date End Date Jose De Jesus Stallings MD PCP - General Family Medicine 02/18/21 Heriberto Bob MD [address] [place] [address] [place] [address] Surgeon Orthopedic Surgery 01/28/22
--- OUTSIDE RECORDS SUMMARY | 2024-06-11 08:07 | XMS_ITS | Referral Summary ---
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 Gender Identity Not on file Sexual Orientation [...] 06/28/2023 3:40 PM CDT Plan of Treatment Not on file Medical Devices Implanted Type Area Ibm Mainframe Developer Device Identifier Shelf Expiration Date Model / Serial / Lot [employer] [place] 60mm Sector Hip Shell Acetabular Gription Sterile Latex Free [id number] - [id number] Implanted:Qty: 1 on 01/27/2022 by Heriberto Bob MD at [facility] Right: Hip [employer] [id number] 12/11/2026 [id number] / / [id number] [employer] [place] 60mm 36mm Hip Neutral Liner Acetabular Altrx Sterile Latex Free [id number] - [id number] Implanted:Qty: 1 on 01/27/2022 by Heriberto Bob MD at [facility] Right: Hip [employer] [id number] 12/11/2026 [id number] / / [id number] [employer] [place] 6.5mm 35mm Acetabular Cancellous Screw Bone Sterile 1217-35-500 - [id number] Implanted:Qty: 1 on 01/27/2022 by Heriberto Bob MD at [facility] Right: Hip [employer] [id number] 09/11/2031 1217-35-500 / / [id number] [employer] Actis Collar Hip 8 Standard Offset Stem Femoral [id number] - [id number] Implanted:Qty: 1 on 01/27/2022 by Heriberto Bob MD at [facility] Right: Hip [employer] [id number] 05/12/2031 [id number] / / [id number] [employer] Articul/[place]arsh 36mm Cementless Hip +8.5mm 02/24 Taper Head Femoral Latex Free 1365-36-330 - [id number] Implanted:Qty: 1 on 01/27/2022 by Heriberto Bob MD at [facility] Right: Hip [employer] [id number] 11/11/2026 1365-36-330 / / [id number] Insurance MEDICARE [facility] MEDICARE COMMERCIAL GENERIC MEDICARE COMMERCIAL GENERIC Advance Directives For more information, please contact: [phone] * Full Code (Latest Code Status on File) Date Activated Date Inactivated Comments 01/27/2022 1:09 PM 01/28/2022 7:32 PM Care Teams Medicare Contact Specialist Relationship Specialty Start Date End Date Jose De Jesus Stallings MD PCP - General Family Medicine 02/18/21 Heriberto Bob MD [address] [place] [address] DR OSULLIVAN [address] [place] [id number] Surgeon Orthopedic Surgery 01/28/22
[2024-06-11 08:26] VITALS: BP 149/80; PULSE 70; RESP 20; TEMP 36.6; O2SAT 96
== END 2024-06-11 08:35 | disposition home or self-care (01) ==
PROVIDERS: Emergency Provider Nurse Practitioner; PCP Family Medicine
DX: L30.9 Dermatitis, unspecified (principal); M16.11 Unilateral primary osteoarthritis, right hip
CPT/HCPCS: 99213; G0463

== ENCOUNTER 2024-06-26 09:36 | Emergency (ER) | payer MEDICARE, SELFPAY ==
[2024-06-26 09:44] VITALS: BP 141/81; PULSE 64; RESP 20; TEMP 36.4; O2SAT 95
--- NOTE | 2024-06-26 09:59 | ED_ITS ---
HPI - Skin/Abscess/Foreign Bdy General Chief complaint: Skin/Abscess/Foreign Body Stated complaint: RASH Time Seen by Provider: 06/26/24 10:00 Source: patient, RN notes reviewed and old records reviewed Mode of arrival: ambulatory Limitations: no limitations History of Present Illness HPI narrative: 74-year-old male who presents to [facility] with complaints of continued rash mainly to his bilateral arms with purities and some itching also to his chest. Patient was treated with prednisone for 10 days starting on the 11 June. Patient states did get better but then has come back especially on his bilateral arms with small areas of red rash with no pustule or vesicle formation. Patient reports no pain just the itching. Patient reports no new skin products food, medications no any new laundry products, no recent antibiotics. MD complaint: rash Onset (ago): week(s) (16 days) Location: chest, LLE and RLE Severity: moderate Treatments prior to arrival: other (has taken Prednisone, Zyrtec, and Pepcid) Related Data Allergies Allergy/AdvReac Type Severity Reaction Status Date / Time No Known Allergies Allergy Verified 06/26/24 10:00 Review of Systems Review of Systems: CONSTITUTIONAL: Denies fever, chills, or sweats. CARDIOVASCULAR: Denies chest pain, palpitations, or edema. RESPIRATORY: Denies cough or dyspnea. SKIN: Reports red itchy areas on chest and on bilateral arms which did improve with recent steroid but then came back, are itchy MUSCULOSKELETAL: Denies joint pain or myalgia. NEUROLOGIC: Denies headache, numbness, or weakness. All systems reviewed & are unremarkable except as noted in HPI and below [facility] Past Medical History Medical History (Updated 06/27/24 @ 07:19 by Rosey Feliz NP) Melanoma of neck excision done Melanoma in situ of trunk excision done Vascular disorder of lower extremity Arterial leg ulcer Colon polyp Bilateral leg numbness Left arm numbness BPH associated with nocturia Low testosterone level in male Primary osteoarthritis of right hip BMI 29.0-29.9,adult BMI greater than 30 Surgical History Surgical History History of repair of left rotator cuff (~01/14/23) Family History Family History Grandparent Diabetes mellitus Social History Social History Smoking status: Never smoker Alcohol intake: current Drinks per week: 15 Alcohol use details: BEER Substance use: unknown Substance use type: does not use Do You Feel Safe in your Home?: Yes Lack of Transportation: No Lack of Food: Never True Current Housing: I Have Housing Concerned About Future Housing: No Difficulty Paying Gas/Electric Bills: No Difficulty Paying for Meds: No Currently Unemployed: No Education: Associate Degree Difficulty w/ Childcare or Family Care: No Living arrangements: with family Spiritual care concerns: No Comments At time of signature, agree with nursing past medical, surgical, social and family history. There is no relevant family history pertinent to the presenting complaint Exam Narrative: GENERAL: Well-appearing, well-nourished, and in no acute distress. HEAD: Normocephalic, atraumatic. EYES: PERRLA, conjunctivae clear, and EOMI. ENT: Mucous membranes moist. Oropharynx without edema, erythema or lesions. NECK: Supple. No lymphadenopathy CHEST: Clear to auscultation. No respiratory distress. no cough noted SAO2 95% on room air HEART: Regular rate and rhythm. SKIN: Warm, dry.? Patches of red rash on arms and chest which are itchy no vesicle or pustule formation, skin dryness noted NEURO:? Alert and oriented x3. PSYCH: Normal mood and affect Course Course Emergency Course: Patient is aware of diagnosis, understands and agrees to treatment plan.? Anticipatory guidance given.? Patient agrees to follow-up as directed and is aware of reasons to seek care at the emergency department. Portions of this record may have been created with voice recognition software Level of Care: Express Care Visit Vital Signs Vital signs: Vital Signs Temperature 36.4 C L 06/26/24 09:44 Pulse Rate 64 06/26/24 09:44 Respiratory Rate 20 06/26/24 09:44 Blood Pressure 141/81 H 06/26/24 09:44 Pulse Oximetry 95 06/26/24 09:44 Oxygen Delivery Room Air 06/26/24 09:44 Temperature 36.4 C L 06/26/24 09:44 Pulse Rate 64 06/26/24 09:44 Respiratory Rate 20 06/26/24 09:44 Blood Pressure 141/81 H 06/26/24 09:44 Pulse Oximetry 95 06/26/24 09:44 Oxygen Delivery Room Air 06/26/24 09:44 Reviewed MDM - Skin/Abscess/Foreign Bdy MDM Narrative Medical decision making narrative: Does not appear at this time to be erythema multiforme, bullous, SJS, TEN; no evidence at this time to suggest RMSF, endocarditis or Lyme disease; patient looks well, nontoxic and is tolerating oral intake; no neurologic signs or symptoms; no headache, photophobia or neck pain; afebrile; appropriate for initial outpatient treatment; discussed the importance of follow-up, patient agrees; question, viral exanthema, contact dermatitis, allergic dermatitis, eczema, urticaria. No soft palate or uvula edema, no tongue, lip edema or other mucosal involvement, no respiratory compromise, no stridor, no wheezing, no wheezing, no history of syncope, no hypotension, no nausea, vomiting, or diarrhea.? Instructed patient to go to nearest ER immediately for any worsening symptoms including but not limited to: fever, spreading rash, pain, sore throat, headache, dizziness, chest pain, trouble breathing, or any symptoms concerning to the patient. Differential Diagnosis Differential diagnosis: Likely urticaria, eczema, contact dermatitis and other (dermatitis) Medical Records Attestation: I reviewed the patient's medical records. Critical Care Time Critical Care Time Critical Care Time: No Discharge Plan Discharge Clinical Impression: Dermatitis, Pruritic rash Patient Disposition: Home Condition: Stable Instructions: Contact Dermatitis (ED), Dermatitis (ED) Additional Instructions: Apply Eucerin lotion to arms and back daily always use sunscreen watch for any infection--redness, swelling, drainage Tylenol or ibuprofen for any fever pain follow up with PCP in 7-10 days for a wound check recheck if develop fever, chills, increasing symptom Go to the ER if your symptoms become worse of if ANY new symptoms develop Prednisone taper take as prescribed take with food Zyrtec daily Pepcid daily If your symptoms persist, change or worsen significantly before you can contact your personal physician then please, without delay, go to the emergency department for further evaluation. Follow-up with PCP in 7-10 days or sooner if needed Follow up with PCP soon in regards to your blood pressure which is elevated above threshold for referral. Blood pressure above 120/80 may indicate pre- hypertension. 141/81 Patient Language: Vietnamese Prescriptions: New prednisone 10 mg tablet 10 mg PO DIRECTED Qty: 21 0RF Rx Instructions: see taper instructions 6 tabs day 1, 5 tabs day 2, 4 tabs day 3, 3 tabs day 4 2 tabs day 5, tab day 6 famotidine [Pepcid] 20 mg tablet 20 mg PO DAILY Qty: 20 0RF Follow-up/Referrals: Jose De Jesus Stallings MD [Primary Care Provider] - Time of Disposition: 10:15 Quality [place] Coma Scale Eyes: Open Verbal: Oriented and Alert Motor: Follows Commands Basilio Coma Total Score: 15
--- OUTSIDE RECORDS SUMMARY | 2024-06-26 10:12 | XMS_ITS | Clinical Summary ---
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 Gender Identity Not on file Sexual Orientation [...] 07/03/2024 07/04/2023 Medical Devices Implanted Type Area Parking Patroller Device Identifier Shelf Expiration Date Model / Serial / Lot [employer] [place] 60mm Sector Hip Shell Acetabular Gription Sterile Latex Free [id number] - [id number] Implanted:Qty: 1 on 01/27/2022 by Heriberto Bob MD at [facility] Right: Hip [employer] [id number] 12/11/2026 [id number] / / [id number] [employer] [place] 60mm 36mm Hip Neutral Liner Acetabular Altrx Sterile Latex Free [id number] - [id number] Implanted:Qty: 1 on 01/27/2022 by Heriberto Bob MD at [facility] Right: Hip [employer] [id number] 12/11/2026 [id number] / / [id number] [employer] [place] 6.5mm 35mm Acetabular Cancellous Screw Bone Sterile 1217-35-500 - [id number] Implanted:Qty: 1 on 01/27/2022 by Heriberto Bob MD at [facility] Right: Hip [employer] [id number] 09/11/2031 1217-35-500 / / [id number] [employer] Actis Collar Hip 8 Standard Offset Stem Femoral [id number] - [id number] Implanted:Qty: 1 on 01/27/2022 by Heriberto Bob MD at [facility] Right: Hip [employer] [id number] 05/12/2031 [id number] / / [id number] [employer] Articul/Harsh 36mm Cementless Hip +8.5mm 02/24 Taper Head Femoral Latex Free 1365-36-330 - [id number] Implanted:Qty: 1 on 01/27/2022 by Heriberto Bob MD at [facility] Right: Hip [employer] [id number] 11/11/2026 1365-36-330 / / [id number] [place] [address] [facility] MEDICARE COMMERCIAL GENERIC COMMERCIAL GENERIC Advance Directives For more information, please contact: [phone] * Full Code (Latest Code Status on File) Date Activated Date Inactivated Comments 01/27/2022 1:09 PM 01/28/2022 7:32 PM Care Teams Office Aide Relationship Specialty Start Date End Date Jose De Jesus Stallings MD PCP - General Family Medicine 02/18/21 Heriberto Bob MD [address] [place] [address] [place] [address] Surgeon Orthopedic Surgery 01/28/22
--- OUTSIDE RECORDS SUMMARY | 2024-06-26 10:12 | XMS_ITS | Referral Summary ---
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 Gender Identity Not on file Sexual Orientation [...] on file Medical Devices Implanted Type Area Sheet Metal Former Device Identifier Shelf Expiration Date Model / Serial / Lot Dep[employer] [place] 60mm Sector Hip Shell Acetabular Gription Sterile Latex Free [id number] - [id number] Implanted:Qty: 1 on 01/27/2022 by Heriberto Bob MD at [facility] Right: Hip [employer] [id number] 12/11/2026 [id number] / / [id number] [employer] [place] 60mm 36mm Hip Neutral Liner Acetabular Altrx Sterile Latex Free [id number] - [id number] Implanted:Qty: 1 on 01/27/2022 by Heriberto Bob MD at [facility] Right: Hip [employer] [id number] 12/11/2026 [id number] / / [id number] [employer] [place] 6.5mm 35mm Acetabular Cancellous Screw Bone Sterile 1217-35-500 - [id number] Implanted:Qty: 1 on 01/27/2022 by Heriberto Bob MD at [facility] Right: Hip [employer] [id number] 09/11/2031 1217-35-500 / / [id number] [employer] Actis Collar Hip 8 Standard Offset Stem Femoral [id number] - [id number] Implanted:Qty: 1 on 01/27/2022 by Heriberto Bob MD at [facility] Right: Hip [employer] [id number] 05/12/2031 [id number] / / [id number] Dep[employer] Articul/Harsh 36mm Cementless Hip +8.5mm 02/24 Taper Head Femoral Latex Free 1365-36-330 - [id number] Implanted:Qty: 1 on 01/27/2022 by Heriberto Bob MD at [facility] Right: Hip [employer] [id number] 11/11/2026 1365-36-330 / / [id number] Insurance MEDICARE [facility] MEDICARE COMMERCIAL GENERIC MEDICARE COMMERCIAL GENERIC Advance Directives For more information, please contact: [phone] * Full Code (Latest Code Status on File) Date Activated Date Inactivated Comments 01/27/2022 1:09 PM 01/28/2022 7:32 PM Care Teams Coil Repair Technician Relationship Specialty Start Date End Date Jose De Jesus Stallings MD PCP - General Family Medicine 02/18/21 Heriberto Bob MD [address] [place] [address] DR OSULLIVAN [address] [place] [id number] Surgeon Orthopedic Surgery 01/28/22
== END 2024-06-26 10:17 | disposition home or self-care (01) ==
PROVIDERS: Emergency Provider Registered Nurse; PCP Family Medicine
DX: L30.9 Dermatitis, unspecified (principal); N40.1 Benign prostatic hyperplasia with lower urinary tract symptoms; M16.11 Unilateral primary osteoarthritis, right hip; Z85.820 Personal history of malignant melanoma of skin; Z86.006 Personal history of melanoma in-situ
CPT/HCPCS: 99213; G0463

== ENCOUNTER 2024-09-09 11:55 | Emergency (ER) | payer MEDICARE, SELFPAY ==
[2024-09-09 12:00] VITALS: BP 163/93; PULSE 76; RESP 20; TEMP 36.6; O2SAT 96
--- NOTE | 2024-09-09 12:52 | ED_ITS ---
HPI - General Adult General Chief complaint: Skin/Abscess/Foreign Body Stated complaint: tingling Source: patient Mode of arrival: ambulatory Limitations: no limitations History of Present Illness HPI narrative: Patient presents for evaluation of generalized pruritus. Symptom onset few months ago. He states he is given prednisone which did not help with symptoms. He also saw a traveling phlebotomist who advised that in the absence of skin lesions they had limited treatment options. Was advised to by Xyzal, which he has not tried. He has tried zyrtec without considerable improvement. He was given a prescription for clobetasol which seems to help. He is concerned that his symptoms return after the cream has been in place for awhile. He denies any new lotions, soaps, detergents or topical products. Of note, he was recently diagnosed with a DVT in the left lower leg. He is on testosterone through [facility]. He informs me today that the provider advised that he continue to administer testosterone despite DVT as he is anticoagulated with Xarelto. He states he had another episode of clotting in the past but self- discontinued his anticoagulant. Related Data Home Medications ?Medication ?Instructions ?Recorded ?Confirmed ?Last Taken ?Type clobetasol topical 09/09/24 Unknown History Allergies Allergy/AdvReac Type Severity Reaction Status Date / Time No Known Allergies Allergy Verified 09/09/24 12:08 Review of Systems Review of Systems: CONSTITUTIONAL: Denies fever, chills, or sweats. EYES: Denies visual changes, redness, or discharge. ENT: Denies rhinorrhea, congestion, sore throat, or otalgia. CARDIOVASCULAR: Denies chest pain, palpitations, or edema. RESPIRATORY: Denies cough or dyspnea. GASTROINTESTINAL: Denies abdominal pain, nausea, vomiting, or diarrhea. GENITOURINARY: Denies dysuria or hematuria. SKIN: Reports itching. Denies skin lesions or rash MUSCULOSKELETAL: Denies back pain, joint pain, or myalgia. NEUROLOGIC: Denies headache, numbness, dizziness, or weakness. PSYCHIATRIC: Denies anxiety or depression. [facility] Past Medical History Medical History Left leg DVT Melanoma of neck excision done Melanoma in situ of trunk excision done Vascular disorder of lower extremity Arterial leg ulcer Colon polyp Bilateral leg numbness Left arm numbness BPH associated with nocturia Low testosterone level in male Primary osteoarthritis of right hip BMI 29.0-29.9,adult BMI greater than 30 Surgical History Surgical History History of repair of left rotator cuff (~01/14/23) Family History Family History Grandparent Diabetes mellitus Social History Social History Smoking status: Never smoker Alcohol intake: current Drinks per week: 15 Alcohol use details: BEER Substance use: unknown Substance use type: does not use Do You Feel Safe in your Home?: Yes Lack of Transportation: No Lack of Food: Never True Current Housing: I Have Housing Concerned About Future Housing: No Difficulty Paying Gas/Electric Bills: No Difficulty Paying for Meds: No Currently Unemployed: No Education: Associate Degree Difficulty w/ Childcare or Family Care: No Living arrangements: with family Spiritual care concerns: No Exam Narrative: GENERAL: Well-appearing, well-nourished, and in no acute distress. HEAD: Normocephalic, atraumatic. EYES: PERRLA and EOMI. ENT: Nares clear, no rhinorrhea or epistaxis. Mucous membranes moist. Oropharynx without tonsillar hypertrophy exudate or other lesions. Bilateral TMs pearly sood nonbulging NECK: Supple. No adenopathy or masses. No carotid bruits or JVD CHEST: Clear to auscultation. No respiratory distress. No wheezes rales or rhonchi HEART: Regular rate and rhythm. No murmur heard. Normal peripheral pulses. ABDOMEN: Soft, nontender, nondistended, normal active bowel sounds. EXTREMITIES: Normal range of motion. No edema. SKIN: There are some confluent areas of erythema noted to the back. There are areas if hyperpigmentation noted to bilateral lower legs which appear chronic NEURO: No focal deficits. Alert and oriented x3. PSYCH: Normal mood and affect. Course Course Emergency Course: This is a 74-year-old male who presented for evaluation of pruritus for the last few months. He has not responded to a few medications. Clobetasol seems to be helping. I advised that the next best step for him may be seeing an neon light installer. Potential etiology of his symptoms would be polycythemia secondary to testosterone use as he told me that he recently was diagnosed with a DVT. Unfortunately, I cannot see his labs to determine whether this is indeed the case. Advised that he call Dr. Hunter tomorrow to potentially receive referral to neon light installer and to potentially have additional labs performed. I did inform him that he should not continue to inject testosterone given his recent DVT. He should go to the ER for chest pain, difficulty breathing/swallowing or shortness of breath. I will discharge him with Vistaril. Level of Care: Express Care Visit Vital Signs Vital signs: Vital Signs Temperature 36.6 C 09/09/24 12:00 Pulse Rate 76 09/09/24 12:00 Respiratory Rate 20 09/09/24 12:00 Blood Pressure 163/93 H 09/09/24 12:00 Pulse Oximetry 96 09/09/24 12:00 Oxygen Delivery Room Air 09/09/24 12:00 Temperature 36.6 C 09/09/24 12:00 Pulse Rate 76 09/09/24 12:00 Respiratory Rate 20 09/09/24 12:00 Blood Pressure 163/93 H 09/09/24 12:00 Pulse Oximetry 96 09/09/24 12:00 Oxygen Delivery Room Air 09/09/24 12:00 Medical Decision Making Vital Signs Vital Signs: Vital Signs Temperature 36.6 C 09/09/24 12:00 Pulse Rate 76 09/09/24 12:00 Respiratory Rate 20 09/09/24 12:00 Blood Pressure 163/93 H 09/09/24 12:00 Pulse Oximetry 96 09/09/24 12:00 Oxygen Delivery Room Air 09/09/24 12:00 Temperature 36.6 C 09/09/24 12:00 Pulse Rate 76 09/09/24 12:00 Respiratory Rate 20 09/09/24 12:00 Blood Pressure 163/93 H 09/09/24 12:00 Pulse Oximetry 96 09/09/24 12:00 Oxygen Delivery Room Air 09/09/24 12:00 Discharge Plan Discharge Clinical Impression: Generalized pruritus Patient Disposition: Home Condition: Stable Instructions: Antibiotic Form, Itchy Skin (ED) Additional Instructions: 1. PLEASE STOP TAKING TESTOSTERONE IMMEDIATELY 2. YOU WOULD LIKELY BENEFIT FROM SEEING AN TRADING ANALYST. PLEASE SPEAK WITH DR. HUNTER TOMORROW ABOUT THIS 3. PLEASE ENSURE THAT DR. HUNTER IS AWARE OF THE FACT THAT YOU HAVE HAD MORE THAN ONE EPISODE OF BLOOD CLOT IN YOUR LIFETIME SO HE CAN MAKE AN APPROPRIATE DECISION REGARDING DURATION OF ANTICOAGULATION 4. PLEASE SPEAK WITH ABOUT LAB WORK. THERE ARE SEVERAL POSSIBILITIES FOR THE CAUSE OF YOUR SYMPTOMS, ONE OF WHICH WOULD BE POLYCYTHEMIA SECONDARY TO TESTOSTERONE, IN LIGHT OF YOUR RECENT BLOOD CLOT. YOU MAY ALSO BENEFIT FROM ADDITIONAL LAB TESTING. I WAS NOT ABLE TO SEE YOUR LABS TODAY IT SOUNDS LIKE THEY WERE DONE AT [facility] Patient Language: Greenlandic Prescriptions: New hydroxyzine pamoate 25 mg capsule 25 - 50 mg PO QID PRN (Reason: itching) Qty: 30 0RF No Action clobetasol topical rivaroxaban 20 mg tablet 20 mg PO DAILY Qty: 90 0RF Rx Instructions: must administer with evening meal after completion of starter pack provided by ER gabapentin 100 mg capsule 100 mg PO QHS Qty: 30 0RF Follow-up/Referrals: Jose De Jesus Hunter MD [Primary Care Provider] - Time of Disposition: 12:51
== END 2024-09-09 12:53 | disposition home or self-care (01) ==
PROVIDERS: Emergency Provider Nurse Practitioner; PCP Family Medicine
DX: L29.9 Pruritus, unspecified (principal); N40.1 Benign prostatic hyperplasia with lower urinary tract symptoms; M16.11 Unilateral primary osteoarthritis, right hip; Z86.718 Personal history of other venous thrombosis and embolism; Z85.820 Personal history of malignant melanoma of skin; Z79.01 Long term (current) use of anticoagulants
CPT/HCPCS: 99213; G0463

== ENCOUNTER 2024-11-22 10:12 | Outpatient (CLI) | payer MEDICARE, SELFPAY ==
--- NOTE | ~2024-11-22 | MR_ITS ---
EXAMINATION: MR thoracic spine wo con DATE: 11/22/2024 11:10 INDICATION: Disease of spinal cord, unspecified. TECHNIQUE: Magnetic resonance imaging (MRI) of the thoracic spine was performed without intravenous contrast. COMPARISON: None FINDINGS: There is 5 degrees dextrocurvature of thoracic spine. There is a chronic compression fracture of T11 with 3/5 loss of height. There is mild chronic height loss of T6, T7, and T8 vertebral bodies. There is severe cervical spondylosis. There is mildly decreased disc height at multiple thoracic levels. There is multilevel [id number] facet joint osteoarthritis in the thoracic spine. At T8-T9, there is a left central extrusion with mild central canal stenosis. At T10-T11, there is a left central extrusion with mild central canal stenosis. There is mild neural foraminal stenosis at multiple levels on either side in thoracic spine. The spinal cord signal intensity is normal. The conus medullaris is at T12. IMPRESSION: 1. Mild thoracic spondylosis. 2. Normal spinal cord. Reviewed, dictated and finalized at location E.
--- NOTE | ~2024-11-22 | MR_ITS ---
EXAMINATION: MR cervical spine wo con DATE: 11/22/2024 11:10 INDICATION: Disease of spinal cord, unspecified. TECHNIQUE: Magnetic resonance imaging (MRI) of the cervical spine was performed without intravenous contrast. COMPARISON: Cervical spine MRI 12/21/2022 FINDINGS: There is 4 degrees dextrocurvature of cervical spine. There is mild chronic anterior wedging of T1 vertebral body. There is moderately decreased disc height at C3-C4, mildly decreased disc height at C4-C5, and severely decreased disc height at C5-C6 and C6-C7. The spinal cord signal intensity is normal. The following disc levels are specifically discussed: C2-C3: There is a central protrusion. There is no uncovertebral joint osteoarthritis. There is severe bilateral facet joint osteoarthritis. There is mild right neural foraminal stenosis. There is no central canal stenosis. C3-C4: The disc does not extend beyond the endplate margin. There is severe bilateral uncovertebral joint osteoarthritis. There is severe bilateral facet joint osteoarthritis. There is mild right and moderate left neural foraminal stenosis. There is mild central canal stenosis. C4-C5: The disc is bulging There is severe bilateral uncovertebral joint osteoarthritis. There is severe bilateral facet joint osteoarthritis. There is mild right and moderate left neural foraminal stenosis. There is mild central canal stenosis with ventral indentation of the spinal cord. C5-C6: The disc does not extend beyond the endplate margin. There is ankylosis of the uncovertebral joints with mild hypertrophy. There is moderate bilateral facet joint osteoarthritis. There is mild bilateral neural foraminal stenosis. There is no central canal stenosis. C6-C7: The disc is bulging. There is severe bilateral uncovertebral joint osteoarthritis. There is severe bilateral facet joint osteoarthritis. There is mild right and moderate left neural foraminal stenosis. There is mild central canal stenosis. C7-T1: There is a central protrusion. There is mild bilateral uncovertebral joint osteoarthritis. There is severe bilateral facet joint osteoarthritis. There is mild bilateral neural foraminal stenosis. There is no central canal stenosis. IMPRESSION: 1. Severe cervical spondylosis, stable from 12/21/2022. Reviewed, dictated and finalized at location E.
== END 2024-11-22 10:13 | disposition home or self-care (01) ==
LOC: GOSHIMG 10:12
PROVIDERS: PCP Psychiatry & Neurology Neurology; Visit Provider Psychiatry & Neurology Neurology
DX: G95.9 Disease of spinal cord, unspecified (principal); M47.894 Other spondylosis, thoracic region; M47.22 Other spondylosis with radiculopathy, cervical region
CPT/HCPCS: 72141; 72146